=== PATIENT | male | born 1980 | race African-American/Black ===

== ENCOUNTER 2016-12-11 10:38 | Emergency (ER) | payer SELFPAY ==
[~2016-12-11] VITALS: Ht 170.2 cm; Wt 60.0 kg
[2016-12-11 10:41] VITALS: BP 115/57; PULSE 77; RESP 16; TEMP 98.4; O2SAT 99
[2016-12-11] MEDS ORDERED: CLIN1CAP5 PO (11:17)
[2016-12-11] MEDS ORDERED: IBUP800T23 PO (11:17)
--- NOTE | 2016-12-11 11:18 | PD ---
HPI Chief Complaint: Oral / Dental Pain or Problem Time Seen by Provider: 11:11 Travel History International Travel<30 days: No Contact w/Intl Traveler<30days: No Traveled to known affect area: No History of Present Illness HPI Patient is a 36-year-old male presenting to emergency department for evaluation of left upper tooth abscess. He reports a history of issues with his teeth stating that he needs to be seen a dentist but they won't see him until the infection is cleared up. He states this has been ongoing for several days, getting worse to the point where he cannot longer work. He reports the pain is 8 out of 10 and describes as aching and throbbing. He denies any injury or trauma to his teeth recently. He further denies any fever, chills, nausea, vomiting, headache. PFSH Past Medical History Medical History: Denies Significant Hx Respiratory: Yes (ASTHMA) Social History Alcohol Use: No Tobacco Use: Yes Substance Use: No Allergies-Medications (Allergen,Severity, Reaction): Coded Allergies: No Known Allergies (Unverified , 12/11/16) Review of Systems Except as stated in HPI: all other systems reviewed are Neg HENT: Positive: Dental Difficulties Musculoskeletal: Positive: Pain Physical Exam Narrative GENERAL: Well-nourished, well-developed patient. SKIN: Focused skin assessment warm/dry. HEAD: Normocephalic. MOUTH: Mucous membranes moist, no lesions, tongue appears normal. Multiple dental caries and broken teeth throughout mouth. No erythema or edema noted on the gums. EYES: No scleral icterus. No injection or drainage. NECK: Supple, trachea midline. No JVD or lymphadenopathy. CARDIOVASCULAR: Regular rate and rhythm without murmurs, gallops, or rubs. RESPIRATORY: Breath sounds equal bilaterally. No accessory muscle use. GASTROINTESTINAL: Abdomen soft, non-tender, nondistended. MUSCULOSKELETAL: No cyanosis, or edema. BACK: Nontender without obvious deformity. No CVA tenderness. Data Data Last Documented VS Vital Signs Date Time Temp Pulse Resp B/P Pulse Ox O2 Delivery O2 Flow Rate FiO2 12/11/16 10:41 98.4 77 16 115/57 99 MDM Medical Decision Making Medical Screen Exam Complete: Yes Emergency Medical Condition: Yes Interpretation(s) Vital Signs Date Time Temp Pulse Resp B/P Pulse Ox O2 Delivery O2 Flow Rate FiO2 12/11/16 10:41 98.4 77 16 115/57 99 Differential Diagnosis Dental caries versus abscess versus antalgia versus other Narrative Course Patient is a 28-year-old male presenting to emergency department evaluation of an abscess to his left upper tooth. He has multiple dental caries, no obvious sign of abscess. Patient will be given antibiotics prophylactically he was advised to follow-up with a dentist within the next week. He was advised that this is a chronic issue that needs attention to avoid recurrence. He was advised to return to emergency department for any new or worsening symptoms. He was advised to complete full course of antibiotics as prescribed, he was advised that he should not had any antibiotics left over ever. He verbalized understanding. Patient stable for discharge. Diagnosis Primary Impression: Dental caries noted on examination Referrals: Dentist 1 week Patient Instructions: Dental Abscess (ED), Dental Caries (DC), General Instructions Departure Forms: Tests/Procedures, Work Release Enter return to work date: Dec 13, 2016 Additional Instructions: Follow-up with a dentist within the week Take medications as prescribed Complete full course of antibiotics Return to emergency department for any new or worsening symptoms Med/Other Pt SpecificInfo: Prescription(s) given Scripts Ibuprofen 800 Mg [id number] Mg PO Q6HR PRN (PAIN) #40 TAB Ref 0 Prov:Donna Noguera 12/11/16 Clindamycin 150 Mg [id number] Mg PO Q8HR 10 Days Ref 0 Prov:Donna Noguera 12/11/16 Disposition: 01 DISCHARGE HOME Condition: Stable Donna Noguera December 11, 2016 11:17
== END 2016-12-11 12:01 | disposition home or self-care (01) ==
LOC: NEPK 10:38
DX: K02.9 Dental caries, unspecified (principal); Z72.0 Tobacco use
CPT/HCPCS: 99283

== ENCOUNTER 2017-02-19 11:58 | Emergency (ER) | payer SELFPAY ==
[~2017-02-19] VITALS: Ht 170.2 cm; Wt 60.0 kg
[~2017-02-19 11:58] MED LIST: CLIN1CAP5 PO; IBUP800T23 PO
[2017-02-19 11:59] VITALS: BP 125/81; PULSE 95; RESP 16; TEMP 98.2; O2SAT 98
--- NOTE | 2017-02-19 12:04 | PD ---
Physical Exam Time Seen by Provider: 12:04 Narrative 37 y/o male with left foot injury one week ago. Vital signs reviewed. Seen at triage desk. Awaiting bed placement. Data Data Last Documented VS Vital Signs Date Time Temp Pulse Resp B/P Pulse Ox O2 Delivery O2 Flow Rate FiO2 02/19/17 11:59 98.2 95 16 125/81 98 MDM Medical Record Reviewed: Yes Supervised Visit with MARLI: Emile Mccauley Feb 19, 2017 12:04
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
[2017-02-19] MEDS ORDERED: IBUP800T23 PO (14:24)
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
== END 2017-02-19 14:51 | disposition home or self-care (01) ==
LOC: NEPK 11:58
DX: S99.922A Unspecified injury of left foot, initial encounter (principal); Y93.55 Activity, bike riding; J45.909 Unspecified asthma, uncomplicated; F10.10 Alcohol abuse, uncomplicated; F17.290 Nicotine dependence, other tobacco product, uncomplicated; F12.10 Cannabis abuse, uncomplicated
CPT/HCPCS: 73630; 99283; E0113

== ENCOUNTER 2017-07-02 14:07 | Emergency (ER) | payer OTHER ==
[~2017-07-02 14:07] MED LIST changes: -CLIN1CAP5 PO; +IBUP1TAB7 PO; -IBUP800T23 PO
[2017-07-02 14:09] VITALS: BP 118/74; PULSE 84; RESP 16; TEMP 97.9; O2SAT 97
--- NOTE | 2017-07-02 14:54 | RADRPT ---
EXAM DATE/TIME: 07/02/2017 14:32 [facility] COMPARISON: No previous studies available for comparison. INDICATIONS : Left shoulder joint pain. MEDICAL HISTORY : None. SURGICAL HISTORY : None. ENCOUNTER: Initial ACUITY: 1 day PAIN SCORE: 6/10 LOCATION: Left Shoulder. FINDINGS: Multiple view examination of the left shoulder demonstrates no evidence of fracture or dislocation. The glenohumeral and acromioclavicular joints are maintained. There is normal range of motion betwee n internal and external rotation. Bony mineralization is normal. CONCLUSION: Unremarkable examination of the left shoulder. Jony Winston MD on July 02, 2017 at 14:51 Board Certified Radiologist. This report was verified electronically.
--- NOTE | 2017-07-02 14:59 | PD ---
HPI Chief Complaint: Pain: Acute or Chronic Time Seen by Provider: 14:32 Travel History International Travel<30 days: No Contact w/Intl Traveler<30days: No Traveled to known affect area: No History of Present Illness HPI 37-year-old male presents to the emergency Department with complaint of left shoulder pain 1 week. 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 Denies chest pain, shortness of breath, paresthesias, loss of sensation, decreased range of motion, decreased strength, radiation of pain to the affected extremity. Has taken tramadol for symptom management. Rates pain 7/10. Describes it as throbbing. Worse with movement. Better at rest. Does not have an established primary care provider. No known allergies. History of asthma. Has no medical complaints. No other modifying factors or associated signs and symptoms. PFSH Past Medical History Asthma: Yes Cardiovascular Problems: Yes (HEART MURMUR) Diminished Hearing: No Respiratory: Yes (ASTHMA) Tetanus Vaccination: > 5 Years Influenza Vaccination: No Past Surgical History Surgical History: No Previous Surgery Social History Alcohol Use: Yes (OCC) Tobacco Use: Yes (-2 BLACK AND MILDS DAILY) Substance Use: Yes (OCC THC) Allergies-Medications (Allergen,Severity, Reaction): Coded Allergies: No Known Allergies (Verified Adverse Reaction, Unknown, 07/02/17) Reported Meds & Prescriptions Reported Meds & Active Scripts Active Ibuprofen 800 Mg Tab 800 Mg PO Q6HR PRN Review of Systems Except as stated in HPI: all other systems reviewed are Neg Physical Exam Narrative GENERAL: Well-nourished, well-developed black male patient, in no acute distress ; afebrile, nontoxic-appearing SKIN: Warm and dry. HEAD: Atraumatic. Normocephalic. EYES: Pupils equal and round. No scleral icterus. No injection or drainage. ENT: Mucosa pink and moist. Airway patent. NECK: Supple. Trachea midline. CARDIOVASCULAR: Regular rate. RESPIRATORY: No accessory muscle use. MUSCULOSKELETAL: Left shoulder with full range of motion; greater than 45 abduction; left shoulder with no obvious deformities. Shoulders equal. Shoulder without erythema, edema, ecchymosis. Tenderness on palpation to the anterior aspect. 5/5 strength. Left upper extremity supple and non-tense. 2+ radial pulse and sensory intact. No obvious deformities. No clubbing. No cyanosis. No edema. NEUROLOGICAL: Awake and alert. Oriented 3. No obvious cranial nerve deficits. Motor grossly within normal limits. Normal speech. PSYCHIATRIC: Appropriate mood and affect; insight and judgment normal. Data Data Last Documented VS Vital Signs Date Time Temp Pulse Resp B/P (MAP) Pulse Ox O2 Delivery O2 Flow Rate FiO2 07/02/17 14:27 16 07/02/17 14:09 97.9 84 118/74 (89) 97 Room Air Orders Orders Shoulder, Complete (>2vws) (07/02/17 ) Drug Screen, Random Urine (07/02/17 14:23) Ed Discharge Order (07/02/17 15:02) [facility] Medical Decision Making Medical Screen Exam Complete: Yes Emergency Medical Condition: Yes Medical Record Reviewed: Yes Differential Diagnosis Shoulder strain, rotator cuff injury, shoulder injury, shoulder pain Narrative Course 37-year-old male with left shoulder pain. Ibuprofen administered in the ER. Left shoulder x-ray ordered. 1459: Left shoulder x-ray concludes: No acute findings. Shoulder x-ray report provided to the patient. Ibuprofen prescribed for home. Instructed patient to follow-up if symptoms persist greater than 10-14 days. Instructed patient to follow up with primary care provider. Patient verbalizes understanding and agreement with treatment plan. Patient is medically cleared and stable for discharge. Discussed reasons to return to the emergency department. Patient agrees with treatment plan. The patients vital signs are stable and the patient is stable for outpatient follow-up and treatment. Patient discharged home, stable and in no acute distress. Diagnosis Primary Impression: Left shoulder pain Qualified Codes: M25.512 - Pain in left shoulder Referrals: Orthopaedic Surgeon Primary Care Physician Patient Instructions: General Instructions, Shoulder Sprain (ED) Additional Instructions: Tylenol or ibuprofen as needed and as directed to reduce pain and inflammation Rest, ice, and compress extremity to decrease pain and inflammation Avoid aggravating activity; increase activity as tolerated Follow-up with primary care provider Follow-up with orthopedics as needed Return to the emergency department immediately with worsening symptoms Med/Other Pt SpecificInfo: Prescription(s) given Scripts Ibuprofen (Ibuprofen) 800 Mg Tab 800 MG PO Q6HR Y for PAIN, #30 TAB 0 Refills Prov: Sultana Flowers 07/02/17 Disposition: 01 DISCHARGE HOME Condition: Stable Sultana Flowers Jul 02, 2017 14:59
[2017-07-02] MEDS ORDERED: IBUP1TAB7 PO (15:02)
[2017-07-02 15:25] VITALS: BP 120/78; TEMP 97.8
== END 2017-07-02 15:25 | disposition home or self-care (01) ==
LOC: NEPD 14:07
DX: M25.512 Pain in left shoulder (principal); F17.200 Nicotine dependence, unspecified, uncomplicated
CPT/HCPCS: 73030; 99283